=== PATIENT | male | born 1980 | race Caucasian/White ===

== ENCOUNTER 2016-07-04 07:26 | Emergency (ER) | payer OTHER ==
[~2016-07-04] VITALS: Ht 180.3 cm; Wt 86.4 kg
[2016-07-04 07:33] VITALS: BP 124/69; PULSE 71; TEMP 97.8
[2016-07-04] MEDS ORDERED: AMOXICILLIN 8751 TAB PO (07:38)
[2016-07-04] MEDS ORDERED: DOXYCYCLINE 10100 MG PO (08:02)
== END 2016-07-04 08:16 | disposition home or self-care (01) ==
LOC: COL.ER 07:26
DX: S60.361A Insect bite (nonvenomous) of right thumb, initial encounter (principal); W57.XXXA Bitten or stung by nonvenomous insect and other nonvenomous arthropods, initial encounter; Y92.828 Other wilderness area as the place of occurrence of the external cause